=== PATIENT | female | born 1950 | race Caucasian/White ===

== ENCOUNTER 2023-10-04 06:36 | Outpatient (CLI) | payer MEDICARE ==
--- NOTE | 2023-10-04 12:00 | MRI Report ---
PROCEDURE: Shoulder RT WO INDICATIONS: SPRAIN OF R SHOULDER TECHNIQUE: Noncontrast oblique coronal T2 fast spin echo with fat saturation, oblique sagittal T1 spin echo and T2 fast spin echo with fat saturation, axial T1 spin echo and T2 fast spin echo with fat saturation t hrough the shoulder. COMPARISON: X-ray right shoulder, 07/20/2023. FINDINGS: Image quality: Excellent. Rotator cuff: There is full-thickness tear of the supraspinatus tendon near the humeral attachment, m easuring 1 cm AP and 1 cm transverse. There is mild tendon retraction or muscle atrophy. There is partial-thickness interstitial tear and tendinosis of the infraspinatus and subscapularis te ndons. No tendon retraction or muscle atrophy. Bones and bursae: No bone marrow contusions or fractures. There is moderate acromioclavicular and gl enohumeral joint degeneration. The acromion demonstrates conventional anatomy, without an os acromia le. No small glenohumeral joint effusion. Capsule and soft tissues: In the absence of intra-articular contrast, the labrum and glenohumeral li gaments appear intact. There is moderate tendinosis of the intra-articular segment of the long head o f the biceps tendon which demonstrates normal location and morphology. The rotator interval appears normal, without fibrosis. The coracohumeral ligament is normal in thickness. IMPRESSION: 1. Full-thickness tear of the infraspinatus tendon with mild tendon retraction. 2. Moderate infraspinatus and subscapular tendinosis with associated interstitial tear. No high-grade tendon tear. 3. No rotator cuff muscle atrophy. 4. Moderate tendinosis of the proximal long head of the biceps. 5. Moderate acromioclavicular and glenohumeral joint degeneration. Reviewed by: Les Valdez MD on 10/04/2023 11:59 AM PDT Approved by: Les Valdez MD on 10/04/2023 11:59 AM PDT Station ID: [id number]
== END 2023-10-04 06:37 | disposition home or self-care (01) ==
LOC: DI 06:36
PROVIDERS: ATTEND Family Medicine
DX: M75.121 Complete rotator cuff tear or rupture of right shoulder, not specified as traumatic (principal); M19.011 Primary osteoarthritis, right shoulder; M75.91 Shoulder lesion, unspecified, right shoulder; M67.921 Unspecified disorder of synovium and tendon, right upper arm